=== PATIENT | male | born 1935 | race Caucasian/White ===

== ENCOUNTER 2021-02-07 11:59 | Inpatient (IN) | payer OTHER ==
[~2021-02-07] VITALS: Ht 180.3 cm; Wt 105.4 kg
[2021-02-07] MEDS ORDERED: METO1TAB33 PO (12:16)
[2021-02-07] MEDS ORDERED: HYDR-643 PO (12:16)
[2021-02-07] MEDS ORDERED: SM M250T PO (12:16)
[2021-02-07] MEDS ORDERED: LISI10TA22 PO (12:16)
[2021-02-07] MEDS ORDERED: DICL50TAB PO (12:16)
[2021-02-07] MEDS ORDERED: MECLIZINE 25 MG TABLET PO ONE (13:25)
[2021-02-07 13:41] LABS: BASO # 0.1 10^3/uL (0.0-0.2); BASO % 0.6 % (0.0-1.0); EOS # 0.1 10^3/uL (0.0-0.5); HEMATOCRIT 39.1 % (42.0-52.0); HEMOGLOBIN 12.7 g/dl (13.5-17.5); LYMPH # 1.4 10^3/uL (1.5-5.0); LYMPH % 18.3 % (24.0-44.0); MEAN CORPUSCULAR HEMOGLOBIN 35.2 pg (27.0-33.0); MEAN CORPUSCULAR HGB CONC 32.5 g/dl (32.0-36.5); MEAN CORPUSCULAR VOLUME 108.3 fl (80.0-96.0); MONO # 1.2 10^3/uL (0.0-0.8); MONO % 15.7 % (2.0-8.0); NEUTROPHILS # 4.9 10^3/uL (1.5-8.5); NEUTROPHILS % 63.9 % (36.0-66.0); PLATELET COUNT, AUTOMATED 254 10^3/uL (150-450); RED BLOOD COUNT 3.61 10^6/uL (4.30-6.10); WHITE BLOOD COUNT 7.7 10^3/uL (4.0-10.0)
[2021-02-07 13:53] LABS: BLOOD UREA NITROGEN 13 MG/DL (7-18); CALCIUM LEVEL 8.8 MG/DL (8.8-10.2); CARBON DIOXIDE LEVEL 31 MEQ/L (21-32); CHLORIDE LEVEL 107 MEQ/L (98-107); CPK CREATINE PHOSPHOKINASE 66 U/L (39-308); CREATININE FOR GFR 1.17 MG/DL (0.70-1.30); GLOMERULAR FILTRATION RATE > 60.0 (>35); GLUCOSE, FASTING 100 MG/DL (70-100); MB/CK RELATIVE INDEX 3.03 (< OR =4); POTASSIUM SERUM 4.5 MEQ/L (3.5-5.1); SODIUM LEVEL 142 MEQ/L (136-145); TROPONIN I < 0.02 NG/ML (< 0.10)
[2021-02-07] MEDS ORDERED: MOM 30ML SUSPENSION UDC PO PRN (19:30)
[2021-02-07] MEDS ORDERED: MAALOX 30 ML SUSP *UDC PO PRN (19:30)
[2021-02-07] MEDS ORDERED: ASPIRIN 81 MG CHEW TABLET PO ONE (19:30)
[2021-02-07] MEDS ORDERED: ACETAMINOPHEN TAB 650MG DOSE (2X325MG) PO PRN (19:30)
[2021-02-07] MEDS ORDERED: METO1TAB7 PO (19:53)
[2021-02-07] MEDS ORDERED: METO50TA7 PO ×2 (19:53)
[2021-02-07] MEDS ORDERED: ALLE180T33 PO (19:56)
[2021-02-07] MEDS ORDERED: CALC600T63 PO (19:56)
[2021-02-07] MEDS ORDERED: OCUVCAP2 PO (19:56)
[2021-02-07] MEDS ORDERED: med rec comment (20:00)
[2021-02-07] MEDS ORDERED: HOME MED LIST COMPLETE! XX SCH (20:00)
[2021-02-07 20:12] LABS: RSV AMPLIFICATION NEGATIVE (NEGATIVE)
[2021-02-07] MEDS ORDERED: METOPROLOL TARTRATE 100MG TAB PO SCH (21:00)
[2021-02-07] MEDS ORDERED: ENOXAPARIN 40MG/0.4ML SYRINGE (J1650 PER 10MG) SC SCH (21:00)
[2021-02-07] MEDS ORDERED: NITROGLYCERIN/D5W 100MCG/ML 25 MG in IV 1 EA IV SCH (21:00)
[2021-02-07] MEDS ORDERED: FEXOFENADINE 60 MG TAB PO SCH (21:00)
[2021-02-07 21:06] LABS: CHOLESTEROL RISK RATIO 2.149 (<5)
[2021-02-07 21:19] LABS: INR 0.99; PROTHROMBIN TIME 13.3 SECONDS (12.5-14.3)
[2021-02-07 21:20] LABS: PARTIAL THROMBOPLASTIN TIME 27.3 SECONDS (24.2-38.5)
[2021-02-07 21:21] LABS: HEMOGLOBIN A1c 5.4 %
[2021-02-07] MEDS ORDERED: LORazepam 2 MG TAB PO PRN (23:15)
[2021-02-08] VITALS (11 sets, daily range): BP systolic 79–172; BP diastolic 65–87
[2021-02-08] MEDS ORDERED: ENOXAPARIN 60MG/0.6ML SYRINGE (J1650 PER 10MG) SC ONE (01:15)
[2021-02-08 06:16] LABS: HEMATOCRIT 36.3 % (42.0-52.0); HEMOGLOBIN 12.2 g/dl (13.5-17.5); MEAN CORPUSCULAR HEMOGLOBIN 35.5 pg (27.0-33.0); MEAN CORPUSCULAR HGB CONC 33.6 g/dl (32.0-36.5); MEAN CORPUSCULAR VOLUME 105.5 fl (80.0-96.0); PLATELET COUNT, AUTOMATED 244 10^3/uL (150-450); RED BLOOD COUNT 3.44 10^6/uL (4.30-6.10); WHITE BLOOD COUNT 6.7 10^3/uL (4.0-10.0)
[2021-02-08 06:31] LABS: INR 1.05; PROTHROMBIN TIME 13.9 SECONDS (12.5-14.3)
[2021-02-08 06:39] LABS: BLOOD UREA NITROGEN 13 MG/DL (7-18); CALCIUM LEVEL 8.6 MG/DL (8.8-10.2); CARBON DIOXIDE LEVEL 27 MEQ/L (21-32); CHLORIDE LEVEL 108 MEQ/L (98-107); CREATININE FOR GFR 0.99 MG/DL (0.70-1.30); GLOMERULAR FILTRATION RATE > 60.0 (>35); GLUCOSE, FASTING 93 MG/DL (70-100); POTASSIUM SERUM 4.2 MEQ/L (3.5-5.1); SODIUM LEVEL 141 MEQ/L (136-145)
[2021-02-08] MEDS ORDERED: PILL CUTTER 1 EACH XX PRN (08:45)
[2021-02-08] MEDS: THIAMINE 100 MG TAB PO SCH ×2 (08:47→21:26)
[2021-02-08] MEDS: FOLIC ACID 1 MG TAB PO SCH (08:47)
[2021-02-08] MEDS: MULTIVITAMINS/MINERALS THERAP 1 TAB PO SCH (08:47)
[2021-02-08] MEDS ORDERED: METOPROLOL TARTRATE 100MG TAB PO SCH ×2 (09:00→21:00)
[2021-02-08] MEDS ORDERED: ENOXAPARIN 100MG/1ML SYRINGE (J1650 PER 10MG) SC SCH (12:00)
[2021-02-08 12:47] LABS: ALBUMIN 2.7 GM/DL (3.2-5.2); ALT/SGPT 42 U/L (12-78); BILIRUBIN,DIRECT 0.3 MG/DL (0.0-0.2); BILIRUBIN,TOTAL 1.1 MG/DL (0.2-1.0); TOTAL PROTEIN 6.3 GM/DL (6.4-8.2)
[2021-02-08] MEDS ORDERED: CAPTOpril 6.25 MG PER 1/2 TABLET PO ONE (20:40)
[2021-02-08] MEDS ORDERED: FEXOFENADINE 60 MG TAB PO SCH (21:00)
[2021-02-08] MEDS ORDERED: METOPROLOL TART 50 MG TAB PO SCH (21:00)
[2021-02-08] MEDS: APIXABAN 5 MG TAB (ELIQUIS) PO SCH (21:26)
[2021-02-09] VITALS: BP 142/82
[2021-02-09 04:00] VITALS: BP 149/67
[2021-02-09 06:00] VITALS: BP 149/74
[2021-02-09 08:00] VITALS: BP_SYST 149; BP_SYST 158; BP_DIAS 74; BP_DIAS 86
[2021-02-09] MEDS: MULTIVITAMINS/MINERALS THERAP 1 TAB PO SCH (08:51)
[2021-02-09] MEDS: APIXABAN 5 MG TAB (ELIQUIS) PO SCH (08:51)
[2021-02-09] MEDS: FOLIC ACID 1 MG TAB PO SCH (08:51)
[2021-02-09] MEDS: THIAMINE 100 MG TAB PO SCH (08:52)
[2021-02-09] MEDS ORDERED: METOPROLOL TARTRATE 100MG TAB PO SCH (09:00)
[2021-02-09] MEDS ORDERED: ELIQ5TAB PO ×2 (11:31→15:20)
[2021-02-09] MEDS ORDERED: lisinopriL 5 MG TAB PO ONE (11:45)
[2021-02-09 12:00] VITALS: BP 137/66
[2021-02-09] MEDS ORDERED: LOPR1TAB6 PO (14:11)
[2021-02-09] MEDS ORDERED: LISI10TA22 PO ×2 (14:12→15:20)
[2021-02-09] MEDS ORDERED: METO50TA7 PO (15:20)
[2021-02-09] MEDS ORDERED: MECL-136 PO (15:20)
== END 2021-02-09 16:05 | disposition home or self-care (01) | DRG 305 ==
LOC: M ED 11:59 → M ED INP 19:30 → M PCU 02-08 01:47
PROVIDERS: ADMIT Internal Medicine; ATTEND Family Medicine
DX: I16.1 Hypertensive emergency (principal); I48.11 Longstanding persistent atrial fibrillation; H81.10 Benign paroxysmal vertigo, unspecified ear; R00.1 Bradycardia, unspecified; E66.9 Obesity, unspecified; F10.10 Alcohol abuse, uncomplicated; D53.9 Nutritional anemia, unspecified; Z79.899 Other long term (current) drug therapy